=== PATIENT | female | born 1990 | race Caucasian/White ===

== ENCOUNTER → 2017-09-05 | Day surgery (SDC) | payer OTHER ==
--- NOTE | 2017-09-04 19:52 | History & Physical Pre-Op ---
General Information and HPI History of Present Illness: Station is a 27-year-old 0 with abnormal Pap smear and DARIO-2 and 3 as well as endocervical involvement on colposcopy. She is here for a LEEP procedure. DARIO-2 and DARIO-3 at 6:00 DARIO-2 and 3 endocervical involvement at 11: 00 Allergies/Medications Allergies: Coded Allergies: No Known Allergies (09/03/17) Past History Surgical History Pertinent Surgical History: none Review of Systems Review of Systems Constitutional: Reports: no symptoms. EENTM: Reports: no symptoms. Cardiovascular: Reports: no symptoms. Respiratory: Reports: no symptoms. GI: Reports: no symptoms. Genitourinary: Reports: no symptoms. Musculoskeletal: Reports: no symptoms. Skin: Reports: no symptoms. Neurological/Psychological: Reports: no symptoms. Hematologic/Endocrine: Reports: no symptoms. Immunologic/Allergic: Reports: no symptoms. All Other Systems: Reviewed and Negative Exam & Diagnostic Data Last 24 Hrs of Vital Signs/I&O Intake & Output 09/04 1600 09/04 0800 09/04 0000 Intake Total Output Total Balance Patient 102 lb Weight Physical Exam: HEENT: Normocephalic atraumatic Chest: Clear to auscultation bilaterally Cardiovascular: Normal S1-S2 Abdomen: Soft nontender nondistended Vulva: Deferred to the OR Extremities: No clubbing cyanosis or edema Assessment/Plan Assessment/Plan: DARIO-3 Plan: LEEP conization As Ranked By This Provider Problem List: 1. DARIO III (cervical intraepithelial neoplasia grade III) with severe dysplasia
[~2017-09-05] VITALS: Ht 165.1 cm; Wt 46.3 kg
--- NOTE | 2017-09-06 10:04 | Operative Report ---
Operative/Inv Procedure Report Surgery Date: 09/05/17 Name of Procedure: LEEP conization Pre-Operative Diagnosis: DARIO-3 Post-Operative Diagnosis: Same Estimated Blood Loss: scant Surgeon/Flux Plant Operator: Samuel Tolbert MD Anesthesia: laryngeal mask airway Operative/Procedure Note Note: The patient is brought to the operating room placed on the OR table in the dorsal supine position. After adequate anesthesia was administered she was intubated with an LMA and repositioned in a modified dorsal lithotomy. She was prepped and draped in usual sterile fashion. A weighted speculum was inserted into the vagina with help of a Kaitlynn retractor 2 [id number] sutures were placed at 3 and 9:00 and tagged. The speculum was then removed and replaced with a rubber bivalved speculum. Lugol's solution was placed on the ectocervix. A LEEP conization was performed taking the anterior and the posterior lip separately. An endocervical cone was also placed very superficially. An endocervical curettage was then performed and this was sent as well. The base of the defect was then coagulated with the ball electrode hemostasis was verified and Jennifer 1 g was placed in the defect as well. The sutures were cut the isthmus removed patient was awakened and sent to recovery in good condition. All needle, sponge, and aspirin counts were correct at the end of the procedure
== END ==
LOC: STS 00:43
DX: D06.0 Carcinoma in situ of endocervix (principal); F17.200 Nicotine dependence, unspecified, uncomplicated
CPT/HCPCS: 81025; J2250